=== PATIENT | male | born 1955 | race Caucasian/White ===

== ENCOUNTER 2017-03-08 09:28 | Emergency (ER) | payer BC ==
[2017-03-08 10:06] VITALS: BP 148/89
--- NOTE | 2017-03-08 10:19 | UC ---
Respiratory Complaint HPI - HPI Summary HPI Summary: 61 y/o male PMHX of Asthma presents to the urgent care c/o productive cough and a cold for past 5 days. Pt states his asthma is now getting worse since now he is using his albuterol inhaler more often and he has some wheezing. He states his cough is productive with a green phlegm associate w/ nasal congestion and transient chest pain when he coughs. Pt sees a Restaurant Line Server at [facility] who has been managing his asthma. Pt denies fever, chest pain, N/V/D, ACEVES, visual disturbances. Pt has not other complains. - History of Current Complaint Chief Complaint: UCRespiratory Stated Complaint: COUGH, CHEST CONGESTION Time Seen by Provider: 03/08/17 10:00 Hx Obtained From: Patient Onset/Duration: Gradual Onset, Lasting Days, Still Present Timing: Intermittent Episodes Severity Initially: Mild Severity Currently: Moderate Pain Intensity: 0 Pain Scale Used: 0-10 Numeric Character: Cough: Productive - green phlegm Aggravating Factors: Allergens Alleviating Factors: Bronchodilator Associated Signs And Symptoms: Positive: Dyspnea, Pleuritic Chest Pain, Wheezing , URI, Nasal Congestion, Sinus Discomfort. Negative: Fever Related History: Seasonal Allergies - Risk Factors Pulmonary Embolism Risk Factors: Negative Cardiac Risk Factors: Negative Pseudomonas Risk Factors: Negative Tuberculosis Risk Factors: Negative - Allergies/Home Medications Allergies/Adverse Reactions: Allergies Allergy/AdvReac Type Severity Reaction Status Date / Time breo inhaler Allergy Swelling Uncoded 03/08/17 10:09 Of Face,Lips,& Throat dust mites Allergy Congestion Uncoded 11/11/15 11:37 Home Medications: Home Medications Cholecalciferol [Vitamin D] 1,000 units PO DAILY 03/08/17 [History Confirmed 07/13] PMH/Surg Hx/FS Hx/Imm Hx Previously Healthy: Yes Respiratory History: Asthma - Surgical History Surgical History: Yes Surgery Procedure, Year, and Place: sinus surgeries x 4-last was 2015; right inguinal hernia 2013. STENT PLACED FOR KIDNEY STONES. LITHOTRYPSY FOR KIDNEY STONES - Family History Known Family History: Positive: None - Social History Occupation: Employed Full-time Lives: With Family Alcohol Use: Occasionally Substance Use Type: None Smoking Status (MU): Never Smoked Tobacco Have You Smoked in the Last Year: No - Immunization History Most Recent Influenza Vaccination: june 2015 Review of Systems Constitutional: Negative Skin: Negative Eyes: Negative ENT: Nasal Discharge, Sinus Congestion - clear discharge Respiratory: Shortness Of Breath, Cough - productive w/ green phlegm Gastrointestinal: Negative Genitourinary: Negative Motor: Negative Neurovascular: Negative Musculoskeletal: Negative Neurological: Negative Psychological: Negative All Other Systems Reviewed And Are Negative: Yes Physical Exam Triage Information Reviewed: Yes Appearance: Well-Appearing, No Pain Distress, Well-Nourished Vital Signs: Initial Vital Signs Temp 98.2 F 03/08/17 09:56 Pulse 98 03/08/17 09:56 Resp 20 03/08/17 09:56 BP 148/89 03/08/17 09:56 Pulse Ox 97 03/08/17 09:56 Vital Signs Reviewed: Yes Eye Exam: Normal Eyes: Positive: Conjunctiva Clear - PERRLA. ENT Exam: Normal ENT: Positive: Normal ENT inspection, Hearing grossly normal, Pharynx normal, TMs normal Dental Exam: Normal Neck exam: Normal Neck: Positive: Supple, Nontender, No Lymphadenopathy Respiratory: Positive: Chest non-tender, Normal breath sounds, No respiratory distress, Wheezing - RT posteriot upper lung field with wheezing Cardiovascular Exam: Normal Cardiovascular: Positive: RRR, No Murmur, Pulses Normal Abdominal Exam: Normal Abdomen Description: Positive: Nontender, No Organomegaly, Soft. Negative: CVA Tenderness (R), CVA Tenderness (L) Bowel Sounds: Positive: Present Musculoskeletal Exam: Normal Musculoskeletal: Positive: Strength Intact, ROM Intact, No Edema Neurological Exam: Normal Psychological Exam: Normal Skin Exam: Normal UC Diagnostic Evaluation - Laboratory O2 Sat by Pulse Oximetry: 97 Respiratory Course/Dx - Course Course Of Treatment: 61 y/o male PMHX of Asthma presents to the urgent care c/o productive cough and a cold for past 5 days. Pt states his asthma is now getting worse since now he is using his albuterol inhaler more often and he has some wheezing. He states his cough is productive with a green phlegm associate w/ nasal congestion and transient chest pain when he coughs. Pt sees a Restaurant Line Server at [facility] who has been managing his asthma. Pt denies fever, chest pain, N/V/D, ACEVES, visual disturbances. Hx obtained. Pt given Prednisone 60mg PO and nebulizer albuterol treatment to alleviate symptoms of wheezing and SOB. Pt tolerated well nebulizer treatment. he is not longer w/ SOB and lungs improved. Pt RX prednisone PO and Tessalon PO tabs. Advised to continue with the sinus rest treatment and the Xyzal tabs for his allergic rhinitis. If symptoms do not improve to f/u with his Restaurant Line Server for furhter treatment. Pt BP is elevated today. Pt w/ FMHX of HTN. Advised to decrease salt in his diet and monitor BP and if it continues to be elevated to f/u with his PCP for further management. Pt understood and agreed and left the clinic ambulating. - Differential Dx/Diagnosis Differential Diagnosis/HQI/PQRI: Asthma, Bronchitis, Lower Resp Infection, Sinusitis Provider Diagnoses: 1-Acute asthma exacerbation. 2-Cough. 3- Elevated blood pressure w/o Hx of HTN Discharge - Discharge Plan Condition: Stable Disposition: HOME Prescriptions: Benzonatate CAP* [Tessalon 100 MG CAP*] 100 mg PO TID #21 cap predniSONE TAB* [Deltasone TAB*] 20 mg PO DAILY #8 tab Patient Education Materials: Asthma (ED), Low Sodium Diet (ED) Referrals: Eric Allen MD [Primary Care Provider] - 1 Week Additional Instructions: Please take medication as directed, Your were given first dose of Prednisone PO today. You will continue with the next dose tomorrow. Please continue w/ albuterol inhaler q4-6hrs prn and your sinus rest treatment. Increase fluid intake and rest . If symptoms do not improve or worsen please f/u with your Restaurant Line Server for further management. -Your BP is elevated today, please monitor your BP at home and decrease salt in your diet and if continues to be levated please f/u with your PCP for further management.
[2017-03-08] MEDS ORDERED: predniSONE TAB* 20 MG PO ONE (10:29)
[2017-03-08] MEDS ORDERED: Albuterol 2.5 MG/3 ML NEB.SOL* (0.083%) INH ONE (10:30)
== END 2017-03-08 11:29 | disposition home or self-care (01) ==
LOC: UCCORT 09:28
DX: J45.901 Unspecified asthma with (acute) exacerbation (principal); R05 Cough; R03.0 Elevated blood-pressure reading, without diagnosis of hypertension
CPT/HCPCS: 99212; G0463; J7512

== ENCOUNTER 2018-12-04 09:22 | Emergency (ER) | payer BC ==
[2018-12-04 09:48] VITALS: BP 133/83
--- NOTE | 2018-12-04 10:18 | UC ---
Eye Complaint HPI - HPI Summary HPI Summary: 62-year-old male presents with complaints of right eye redness and itchiness. States I started with some itchiness and mild eye redness yesterday and he thought it was allergies and tried an hpao-yeg-qkffmld antihistamine eyedrop. This morning he woke up with the eye crusted shut in the eye was much more red. Does not wear contacts. Denies fever, chills, eye pain, injury, foreign body sensation, visual disturbances, photophobia, or URI symptoms. - History of Current Complaint Chief Complaint: UCEye Stated Complaint: RIGHT EYE CONCERN Time Seen by Provider: 12/04/18 10:13 Hx Obtained From: Patient Pain Intensity: 0 - Allergies/Home Medications Allergies/Adverse Reactions: Allergies Allergy/AdvReac Type Severity Reaction Status Date / Time No Known Allergies Allergy Verified 12/04/18 09:42 Home Medications: Home Medications Budesonide/Formote 160/4.5(NF) [Symbicort 160/4.5 (NF)] 2 puff INH BID 12/04/18 [History Confirmed 12/04/18] Cholecalciferol TAB* [Vitamin D TAB*] 1,000 unit PO DAILY 12/04/18 [History Confirmed 12/04/18] Omeprazole CAP (NF) [Prilosec CAP* 20 MG] 20 mg PO DAILY 12/04/18 [History Confirmed 12/04/18] Vitamin THERAPEUTIC TAB* [Theragran TAB*] 1 tab PO DAILY 12/04/18 [History Confirmed 12/04/18] PMH/Surg Hx/FS Hx/Imm Hx Respiratory History: Asthma GI/ History: Gastroesophageal Reflux - Surgical History Surgical History: Yes Surgery Procedure, Year, and Place: Sinus Surgeries x 4, 2015 and previous; Right Inguinal Herniorrhaphy, 2014; Lithotripsy and Stent for Nephrolithiasis - Family History Known Family History: Positive: Non-Contributory - Social History Occupation: Retired Lives: With Family Alcohol Use: Occasionally Substance Use Type: None Smoking Status (MU): Never Smoked Tobacco Have You Smoked in the Last Year: No - Immunization History Most Recent Influenza Vaccination: june 2015 Review of Systems All Other Systems Reviewed And Are Negative: Yes Constitutional: Positive: Negative Skin: Positive: Negative Eyes: Positive: Drainage, Eye Redness. Negative: Blurred Vision, Diplopia, Photophobia Respiratory: Positive: Negative Cardiovascular: Positive: Negative Gastrointestinal: Positive: Negative Genitourinary: Positive: Negative Musculoskeletal: Positive: Negative Neurological: Positive: Negative Is Patient Immunocompromised?: No Physical Exam - Summary Physical Exam Summary: GENERAL APPEARANCE: Well developed, well nourished, alert and cooperative, and appears to be in no acute distress. EYES: Right eye with mild-moderate conjunctival erythema with small amount of purulent drainage present. PERRL, EOM intact. Vision is grossly intact. EARS: External auditory canals and tympanic membranes clear, hearing grossly intact. NOSE: No nasal discharge. THROAT: Pharynx normal. No tonsilar inflammation, swelling, exudate, or lesions. Uvula midline. Oral cavity normal. Teeth and gingiva in good general condition. NECK: Neck supple, non-tender without lymphadenopathy. CARDIAC: Normal S1 and S2. No S3, S4 or murmurs. Rhythm is regular. There is no peripheral edema, cyanosis or pallor. Extremities are warm and well perfused. Capillary refill is less than 2 seconds. Peripheral pulses intact. LUNGS: Clear to auscultation without rales, rhonchi, wheezing or diminished breath sounds. ABDOMEN: Positive bowel sounds. Soft, nondistended, nontender. No guarding or rebound. No masses or hepatosplenomegally. MUSKULOSKELETAL: ROM intact to all extremities. No joint erythema or tenderness. Normal muscular development. Normal gait. SKIN: Skin normal color, texture and turgor with no lesions or eruptions Triage Information Reviewed: Yes Vital Signs: Initial Vital Signs Temp 98.3 F 12/04/18 09:40 Pulse 80 12/04/18 09:40 Resp 16 12/04/18 09:40 BP 133/83 12/04/18 09:40 Pulse Ox 100 12/04/18 09:40 Vital Signs Reviewed: Yes Eye Complaint Course/Dx - Course Course Of Treatment: 62-year-old male presents with complaints of right eye redness and itchiness. States I started with some itchiness and mild eye redness yesterday and he thought it was allergies and tried an kyva-igu-pziywyc antihistamine eyedrop. This morning he woke up with the eye crusted shut in the eye was much more red. Does not wear contacts. Denies fever, chills, eye pain, injury, foreign body sensation, visual disturbances, photophobia, or URI symptoms. Afebrile. Vital signs stable. Exam was remarkable for some mild to moderate right conjunctival erythema and a small was of purulent drainage. Will treat for an acute bacterial conjunctivitis using Polytrim ophthalmic 1 drop 4 times a day 5 days. He is to follow-up with his primary care provider within 3 days if symptoms do not improve. Anticipatory guidance and warning symptoms are reviewed with the patient. Verbalizes understanding and agrees with plan of care. - Differential Dx/Diagnosis Differential Diagnosis/HQI/PQRI: Conjunctivitis, Corneal Abrasion, Foreign Body , Orbital Cellulitis Provider Diagnosis: Bacterial conjunctivitis of right eye Discharge - Sign-Out/Discharge Documenting (check all that apply): Patient Departure All imaging exams completed and their final reports reviewed: No Studies - Discharge Plan Condition: Stable Disposition: HOME Prescriptions: Polymyx/Trimethoprim OPTH* [Polytrim OPHTH*] 1 drop RIGHT EYE QID #1 btl Patient Education Materials: Conjunctivitis (ED) Referrals: Tammy Wiley PA [Primary Care Provider] - Additional Instructions: Start Polysporin ophthalmic 1 drip into the affected eye(s) four times a day for 5 days. Do not wear your contacts until you have completed the treatment. Throw out the old pair and use a new pair once you have completed you treatment. To avoid reinfection or spreading infection: * Use washcloths and towels once then launder. * Do not share washcloths or towels with others. * Change your pillow case each morning until you have finished treatment. Follow up here or with your primary care provider in 3 days if no improvement. Seek immediate medical attention in the emergency room if you develop fever greater than 100.5 F, have pain or swelling of the eye, visual disturbances, loss of vision, or any worsening of symptoms. - Billing Disposition and Condition Condition: STABLE Disposition: Home
== END 2018-12-04 10:29 | disposition home or self-care (01) ==
LOC: UCCORT 09:22
DX: H10.31 Unspecified acute conjunctivitis, right eye (principal); J45.909 Unspecified asthma, uncomplicated; K21.9 Gastro-esophageal reflux disease without esophagitis
CPT/HCPCS: 99212; G0463

== ENCOUNTER 2019-01-17 12:07 | Emergency (ER) | payer BC ==
[2019-01-17 14:12] VITALS: BP 133/81
[2019-01-17] MEDS ORDERED: Albuterol/Ipratropium NEB.SOL* Albuterol 2.5 MG/Ipratropium 0.5 MG 3 ML INH ONE (14:26)
--- NOTE | 2019-01-17 14:39 | UC ---
Respiratory Complaint HPI - HPI Summary HPI Summary: Pt with cold symptoms for one week including sinus pressure. He has asthma and started having a productive cough with greenish/brown sputum, which he showed me , and a fever today. - History of Current Complaint Chief Complaint: UCGeneralIllness Stated Complaint: FEVER,CHEST CONGESTION 1 WEEK Time Seen by Provider: 01/17/19 14:22 Hx Obtained From: Patient Onset/Duration: Gradual Onset Timing: Constant Severity Initially: Mild Severity Currently: Mild Pain Intensity: 6 Aggravating Factors: Nothing Alleviating Factors: Bronchodilator - Uses albuterol nebulizer at home Associated Signs And Symptoms: Positive: Fever, Nasal Congestion, Sinus Discomfort - Allergies/Home Medications Allergies/Adverse Reactions: Allergies Allergy/AdvReac Type Severity Reaction Status Date / Time fluticasone furoate Allergy See Comment Verified 01/17/19 14:12 [From Breo Ellipta] vilanterol Allergy See Comment Verified 01/17/19 14:12 [From Breo Ellipta] PMH/Surg Hx/FS Hx/Imm Hx Previously Healthy: Yes Respiratory History: Asthma - Surgical History Surgical History: Yes Surgery Procedure, Year, and Place: Sinus Surgeries x 4, 2015 and previous; Right Inguinal Herniorrhaphy, 2013; Lithotripsy and Stent for Nephrolithiasis - Family History Known Family History: Positive: Non-Contributory - Social History Alcohol Use: Weekly Substance Use Type: None Smoking Status (MU): Never Smoked Tobacco Have You Smoked in the Last Year: No - Immunization History Most Recent Influenza Vaccination: june 2015 Review of Systems All Other Systems Reviewed And Are Negative: Yes Constitutional: Positive: Fever ENT: Positive: Nasal Discharge, Sinus Congestion, Sinus Pain/Tenderness - History of several sinus surgeries in the past "getting disgusting stuff when I blow my nose" Respiratory: Positive: Cough - productive cough og greenish/brown sputum Is Patient Immunocompromised?: No Physical Exam Triage Information Reviewed: Yes Appearance: Well-Appearing, No Pain Distress, Well-Nourished Vital Signs: Initial Vital Signs Temp 100.1 F 01/17/19 14:04 Pulse 98 01/17/19 14:04 Resp 18 01/17/19 14:04 BP 133/81 01/17/19 14:04 Pulse Ox 97 01/17/19 14:04 Vital Signs Reviewed: Yes Eyes: Positive: Conjunctiva Clear ENT: Positive: Hearing grossly normal, Pharynx normal, TMs normal, Sinus tenderness, Uvula midline Neck: Positive: Supple, Nontender, No Lymphadenopathy Respiratory: Positive: No respiratory distress, No accessory muscle use, Rhonchi - mildly scattered rhonchi, Wheezing - wheezing with forced expiration Cardiovascular: Positive: RRR, No Murmur, Pulses Normal, Brisk Capillary Refill Musculoskeletal Exam: Normal Neurological Exam: Normal Psychological Exam: Normal Skin Exam: Normal Respiratory Course/Dx - Course Course Of Treatment: CXR: REPORT: Elevated lung volumes and patchy rarefaction of interstitial markings. Minimal linear atelectasis at the lung bases. No pulmonary infiltrate, focal pulmonary lesion, pleural effusion, or pneumothorax. The heart, pulmonary vasculature, and mediastinal contours are unremarkable. IMPRESSION: #. Stigmata of obstructive lung disease. No acute pulmonary or cardiac process evident. Duo Neb treatment: Lungs with decreased wheezing, increased aeration. Will treat for sinusitis and bronchitis. - Differential Dx/Diagnosis Provider Diagnosis: Bronchitis, Sinusitis Discharge - Sign-Out/Discharge Documenting (check all that apply): Patient Departure All imaging exams completed and their final reports reviewed: Yes - Discharge Plan Condition: Fair Disposition: HOME Prescriptions: DOXYcycline CAP(*) [DOXYcycline 100MG CAP(*)] 100 mg PO BID 10 Days #20 cap Patient Education Materials: Acute Bronchitis (ED) Referrals: Tammy Wiley PA [Primary Care Provider] - Additional Instructions: Continue your nebulizer treatments at home every 4 hours as needed. No dairy products, antacids or multivitamins 2 hours before you take the Doxycycline and 2 hours after you take it. Follow up with your doctor in 3-4 days if no improvement. - Billing Disposition and Condition Condition: FAIR Disposition: Home - Attestation Statements Provider Attestation: Per institutional requirements, I have reviewed the chart, however, I was not consulted specifically or made aware of this patient by the midlevel provider. I did not personally evaluate, interact with , or disposition this patient.
== END 2019-01-17 15:18 | disposition home or self-care (01) ==
LOC: UCCORT 12:07
DX: J40 Bronchitis, not specified as acute or chronic (principal); J32.9 Chronic sinusitis, unspecified
CPT/HCPCS: 71046; 99212; A9270-GY; G0463

== ENCOUNTER 2019-06-25 19:37 | Emergency (ER) | payer BC ==
[2019-06-25 20:16] VITALS: BP 146/87
--- NOTE | 2019-06-25 20:31 | UC ---
General HPI - HPI Summary HPI Summary: Pt states he noticed a sore on his right cheek Friday and then Friday sores on his tongue. Pt states he uses inhalers and thought the sores could be caused by the inhaler. Pt called his MD and was prescribed Clotrimazole yahir 5x's daily. Pt states he is not noticing the sores getting better. Pt also completed a course of abx and steroids for a sinus infection 10 days ago. - History of Current Complaint Chief Complaint: UCGeneralIllness Stated Complaint: SORE THROAT, SORES IN MOUTH Time Seen by Provider: 06/25/19 20:15 Hx Obtained From: Patient Onset/Duration: Sudden Onset, Lasting Days Timing: Constant Onset Severity: Mild Current Severity: Moderate Pain Intensity: 2 - Allergy/Home Medications Allergies/Adverse Reactions: Allergies Allergy/AdvReac Type Severity Reaction Status Date / Time fluticasone furoate Allergy See Comment Verified 06/25/19 20:17 [From Breo Ellipta] vilanterol Allergy See Comment Verified 06/25/19 20:17 [From Breo Ellipta] PMH/Surg Hx/FS Hx/Imm Hx Previously Healthy: Yes - Surgical History Surgical History: Yes Surgery Procedure, Year, and Place: Sinus Surgeries x 4, 2015 and previous; Right Inguinal Herniorrhaphy, 2013; Lithotripsy and Stent for Nephrolithiasis - Family History Known Family History: Positive: Respiratory Disease - Social History Alcohol Use: Weekly Substance Use Type: None Smoking Status (MU): Never Smoked Tobacco Have You Smoked in the Last Year: No - Immunization History Most Recent Influenza Vaccination: june 2015 Review of Systems All Other Systems Reviewed And Are Negative: Yes ENT: Positive: Other - oral sores Physical Exam Triage Information Reviewed: Yes Appearance: Well-Appearing, Well-Nourished, Pain Distress Vital Signs: Initial Vital Signs Temp 98 F 06/25/19 20:09 Pulse 78 06/25/19 20:09 Resp 14 06/25/19 20:09 BP 146/87 06/25/19 20:09 Pulse Ox 98 06/25/19 20:09 Vital Signs Reviewed: Yes Eye Exam: Normal ENT Exam: Normal Dental: Positive: Other: - thrush on the tongue, multple large sores with thrush Neck exam: Normal Respiratory Exam: Normal Cardiovascular Exam: Normal Abdominal Exam: Normal Bowel Sounds: Positive: Present Musculoskeletal Exam: Normal Neurological Exam: Normal Psychological Exam: Normal Skin Exam: Normal Course/Dx - Course Course Of Treatment: hx obtained, exam performed ,meds reviewed already being treated for thrush, suggested OTc treatments to help - Diagnoses Provider Diagnosis: Thrush of mouth and esophagus Discharge ED - Sign-Out/Discharge Documenting (check all that apply): Patient Departure All imaging exams completed and their final reports reviewed: No Studies - Discharge Plan Condition: Stable Disposition: HOME Patient Education Materials: Oral Candidiasis (ED) Referrals: Tammy Wiley PA [Primary Care Provider] - Additional Instructions: 1. continue with the throat lozenges 2. Use coconut oil swish and swallow multiple times a day to help with the infection 3. FOllow up if not continually improving over the course of the next week. - Billing Disposition and Condition Condition: STABLE Disposition: Home
== END 2019-06-25 20:33 | disposition home or self-care (01) ==
LOC: UCCORT 19:37
DX: B37.0 Candidal stomatitis (principal); B37.81 Candidal esophagitis; Z88.8 Allergy status to other drugs, medicaments and biological substances
CPT/HCPCS: 99211; G0463

== ENCOUNTER 2019-07-26 13:27 | Emergency (ER) | payer BC ==
[2019-07-26 15:00] VITALS: BP 145/91
--- NOTE | 2019-07-26 15:17 | UC ---
Throat Pain/Nasal Kenneth HPI - HPI Summary HPI Summary: Pt presents with c/o sudden onset of ST and "sores" in his mouth X 1-2 days. Pt was treated for strep ~ 2 weeks ago and now thinks it may have returned. - History of Current Complaint Stated Complaint: ST Time Seen by Provider: 07/26/19 14:55 Hx Obtained From: Patient Onset/Duration: Sudden Onset, Lasting Days, Still Present Severity: Moderate Pain Intensity: 4 Cough: None Associated Signs & Symptoms: Positive: Dysphagia - Epiglottits Risk Factors Epiglottis Risk Factors: Sudden Onset - Allergies/Home Medications Allergies/Adverse Reactions: Allergies Allergy/AdvReac Type Severity Reaction Status Date / Time fluticasone furoate Allergy See Comment Verified 07/26/19 14:57 [From Breo Ellipta] vilanterol Allergy See Comment Verified 07/26/19 14:57 [From Breo Ellipta] Home Medications: Home Medications Acetaminophen [Tylenol Extra Strength] 500 mg PO ONCE 07/26/19 [History Confirmed 07/26/19] Ibuprofen TAB* [Motrin TAB* 400 MG] 400 mg PO Q6H PRN 07/26/19 [History Confirmed 07/26/19] PMH/Surg Hx/FS Hx/Imm Hx Previously Healthy: Yes GI/ History: Gastroesophageal Reflux - Surgical History Surgical History: Yes Surgery Procedure, Year, and Place: Sinus Surgeries x 4, 2016 and previous; Right Inguinal Herniorrhaphy, 2014; Lithotripsy and Stent for Nephrolithiasis. R rotator cuff - Family History Known Family History: Positive: Respiratory Disease - Social History Occupation: Retired Lives: With Family Alcohol Use: Occasionally Substance Use Type: None Smoking Status (MU): Never Smoked Tobacco Have You Smoked in the Last Year: No - Immunization History Most Recent Influenza Vaccination: june 2015 Review of Systems All Other Systems Reviewed And Are Negative: Yes Constitutional: Positive: Fever, Chills Skin: Positive: Negative Eyes: Positive: Negative ENT: Positive: Sore Throat Respiratory: Positive: Negative Cardiovascular: Positive: Negative Gastrointestinal: Positive: Negative Genitourinary: Positive: Negative Motor: Positive: Negative Neurovascular: Positive: Negative Musculoskeletal: Positive: Negative Neurological: Positive: Negative Psychological: Positive: Negative Is Patient Immunocompromised?: No Physical Exam Triage Information Reviewed: Yes Appearance: Well-Appearing Vital Signs: Initial Vital Signs Temp 98.8 F 07/26/19 14:55 Pulse 101 07/26/19 14:55 Resp 16 07/26/19 14:55 BP 145/91 07/26/19 14:55 Pulse Ox 100 07/26/19 14:55 Vital Signs Reviewed: Yes Eye Exam: Normal ENT: Positive: Other - canker sores Dental Exam: Normal Neck exam: Normal Respiratory Exam: Normal Cardiovascular Exam: Normal Musculoskeletal Exam: Normal Neurological Exam: Normal Psychological Exam: Normal Skin Exam: Normal Throat Pain/Nasal Course/Dx - Course Course Of Treatment: Pt was recently on amoxicillin beginning on 06/25/19, 8[address] Q[address] resolved after finishing medication and now ST returned. - Differential Dx/Diagnosis Differential Diagnosis/HQI/PQRI: Mononucleosis, Pharyngitis Provider Diagnosis: Strep sore throat Discharge ED - Sign-Out/Discharge Documenting (check all that apply): Patient Departure All imaging exams completed and their final reports reviewed: No Studies - Discharge Plan Condition: Stable Disposition: HOME Prescriptions: Azithromycin TAB* [Zithromax TAB (Z-ZACH) 250 mg #6 tabs] 2 tab PO .TODAY, THEN 1 DAILY #1 zach Patient Education Materials: Strep Throat (ED) Referrals: Joy Schmitt DO [Primary Care Provider] - If Needed Jasmina Joseph MD [Medical Doctor] - If Needed - Billing Disposition and Condition Condition: STABLE Disposition: Home
== END 2019-07-26 15:26 | disposition home or self-care (01) ==
LOC: UCCORT 13:27
DX: J02.0 Streptococcal pharyngitis (principal); Z88.8 Allergy status to other drugs, medicaments and biological substances
CPT/HCPCS: 87651; 99212; G0463

== ENCOUNTER 2019-09-08 16:31 | Emergency (ER) | payer BC ==
[2019-09-08 17:57] VITALS: BP 147/96
--- NOTE | 2019-09-08 18:21 | UC ---
Throat Pain/Nasal Kenneth HPI - HPI Summary HPI Summary: Pt presents with c/o recurrent ST that began in 06/15. Pt was last seen here on 07/26/19 and diagnosed with Strep throat. Pt was given antibiotic, followed up with PCP, referred to ENT, given ciprofloxin for recurrent strep and and then had tonsil biopsy done at [facility]. Pt states pathology did not reveal malignancy. Pt returns to day as he has gradual onset of ST and large ulceration/sore on right side of throat and smaller one on left side of throat. - History of Current Complaint Chief Complaint: UCRespiratory Stated Complaint: RECURRING SORE THROAT Time Seen by Provider: 09/08/19 18:01 Hx Obtained From: Patient Onset/Duration: Gradual Onset, Lasting Days, Still Present Severity: Moderate Pain Intensity: 4 Cough: None Associated Signs & Symptoms: Positive: Dysphagia - Epiglottits Risk Factors Epiglottis Risk Factors: Negative - Allergies/Home Medications Allergies/Adverse Reactions: Allergies Allergy/AdvReac Type Severity Reaction Status Date / Time fluticasone furoate Allergy See Comment Verified 09/08/19 17:58 [From Breo Ellipta] vilanterol Allergy See Comment Verified 09/08/19 17:58 [From Breo Ellipta] dust Allergy Unknown Uncoded 09/08/19 17:58 Reaction Details Home Medications: Home Medications Mens Vitamin 1 tab PO DAILY 09/08/19 [History Confirmed 09/08/19] Probiotic Multi Enzyme 1 dose PO DAILY 09/08/19 [History Confirmed 09/08/19] PMH/Surg Hx/FS Hx/Imm Hx Previously Healthy: Yes - Surgical History Surgical History: Yes Surgery Procedure, Year, and Place: Sinus Surgeries x 4, 2015 and previous; Right Inguinal Herniorrhaphy, 2014; Lithotripsy and Stent for Nephrolithiasis. R rotator cuff - Family History Known Family History: Positive: Respiratory Disease - Social History Occupation: Retired Lives: With Family Alcohol Use: Occasionally Substance Use Type: None Smoking Status (MU): Never Smoked Tobacco Have You Smoked in the Last Year: No - Immunization History Most Recent Influenza Vaccination: june 2015 Vaccination Up to Date: No Review of Systems All Other Systems Reviewed And Are Negative: Yes Constitutional: Positive: Fatigue Skin: Positive: Negative Eyes: Positive: Negative ENT: Positive: Sore Throat Respiratory: Positive: Negative Cardiovascular: Positive: Negative Gastrointestinal: Positive: Negative Genitourinary: Positive: Negative Motor: Positive: Negative Neurovascular: Positive: Negative Musculoskeletal: Positive: Negative Neurological/Mental Status: Positive: Negative Psychological: Positive: Negative Is Patient Immunocompromised?: No Physical Exam Triage Information Reviewed: Yes Appearance: Well-Appearing Vital Signs: Initial Vital Signs Temp 97.9 F 09/08/19 17:45 Pulse 74 09/08/19 17:45 Resp 18 09/08/19 17:45 BP 147/96 09/08/19 17:45 Pulse Ox 100 09/08/19 17:45 Vital Signs Reviewed: Yes Eye Exam: Normal ENT: Positive: Tonsillar exudate - large aphthous ulceration right tonsil, quarter size; left side, dime side ulceration Dental Exam: Normal Neck exam: Normal Respiratory Exam: Normal Cardiovascular Exam: Normal Musculoskeletal Exam: Normal Neurological Exam: Normal Psychological Exam: Normal Skin Exam: Normal Throat Pain/Nasal Course/Dx - Differential Dx/Diagnosis Differential Diagnosis/HQI/PQRI: Influenza, Mononucleosis, Tonsillitis Provider Diagnosis: Aphthae, oral Discharge ED - Sign-Out/Discharge Documenting (check all that apply): Patient Departure All imaging exams completed and their final reports reviewed: No Studies - Discharge Plan Condition: Stable Disposition: HOME Prescriptions: Lidocaine 2% VISCOUS* [Xylocaine 2% Viscous*] 15 ml SWISH SPIT Q4H PRN #1 btl PRN Reason: Pain - Mild ValACYclovir (*) [Valtrex 1 GM(*)] 1 gm PO Q12H #14 tab Patient Education Materials: Canker Sores (ED) Referrals: Joy Schmitt DO [Primary Care Provider] - If Needed Additional Instructions: Please follow up with your ENT specialist as soon as possible. - Billing Disposition and Condition Condition: STABLE Disposition: Home
== END 2019-09-08 18:50 | disposition home or self-care (01) ==
LOC: UCCORT 16:31
DX: K12.0 Recurrent oral aphthae (principal); R53.83 Other fatigue; Z88.8 Allergy status to other drugs, medicaments and biological substances; Z91.09 Other allergy status, other than to drugs and biological substances
CPT/HCPCS: 87070; 87651; 99212; G0463